=== PATIENT | female | born 1970 | race Caucasian/White ===

== ENCOUNTER → 2017-03-15 | Outpatient (CLI) | payer OTHER ==
[~2017-03-15] MED LIST: CALCIUM + D PO; CALCIUM + D1 TA1 PO; CARAFATE1 GM/10 ML PO; DEPO-PROVERA IM; DEXILANT60 M1 PO; FULL CIRCLE BIOT5 MG PO; IRON PO; METOPROLOL SUCC25 M1 PO; MULTI-VIT PO; MULTIVITAMIN1 TA1 PO; MYL80 PO; MYLANTA355 ML PO; PAN PO; POLY VITAMIN W/50 M2 PO; PROZ20 PO; REG10 PO; SER25 PO; XAN1 PO; ZINC PO; [UNRECOGNIZED DRUG - OTHER] PO; [UNRECOGNIZED DRUG - OTHER] PO; [UNRECOGNIZED DRUG - OTHER] PO
[2017-03-15 10:32] LABS: BASOPHIL % 0.4 % (0-2); RED BLOOD CELLS 4.36 M/mm3 (4.10-5.10)
[2017-03-15 10:33] LABS: RED CELL DISTRIBUTION WIDTH 15.4 % (11.5-14.5)
[2017-03-15 10:34] LABS: PLATELET COUNT 417 x10^3mcL (130-400)
[2017-03-15 10:49] LABS: ALBUMIN 4.1 g/dL (3.4-5.0); ALKALINE PHOSPHATASE 118 U/L (46-116); ALT/SGPT 20 U/L (14-59); AST/SGOT 22 U/L (15-37); BILIRUBIN TOTAL 0.7 mg/dL (0.20-1.00); CALCIUM 8.8 mg/dL (8.5-10.1); CARBON DIOXIDE 24.8 mmol/L (21-32); CHLORIDE SERUM 104 mmol/L (98-107); CREATININE SERUM 0.7 mg/dL (0.6-1.0); GFR1 > 60 mL/min; GLUCOSE SERUM 97 mg/dL (74-106); HDL CHOLESTEROL 60 mg/dL (40-60); PHOSPHOROUS 3.6 mg/dL (2.5-4.9); POTASSIUM SERUM 3.2 mmol/L (3.5-5.1); SODIUM SERUM 140 mmol/L (136-145); TRIGLYCERIDES 120 mg/dL (<150); URIC ACID 5.7 mg/dL (2.6-6.0)
[2017-03-15 10:51] LABS: CHOLESTEROL 208 mg/dL (<200); CHOLESTEROL/HDL RATIO 3.5; TOTAL PROTEIN, SERUM 8.3 g/dL (6.4-8.2)
[2017-03-15 10:58] LABS: IRON 82 ug/dL (50-170)
[2017-03-15 11:03] LABS: FREE T4 1.2 ng/dL (0.76-1.46); FREE THYROXINE INDEX 3.6 ug/dL (1.4-4.5); T4(THYROXINE) 11.3 ug/dL (4.7-13.3)
[2017-03-15 11:07] LABS: TOTAL IRON BINDING CAPACITY 579 ug/dL (250-450)
[2017-03-15 11:32] LABS: T3 TOTAL 1.85 ng/mL
[2017-03-15 11:35] LABS: ERYTHROCYTE SED RATE 47 mm/hr (0-20)
== END | disposition home or self-care (01) ==
LOC: LB 09:19
PROVIDERS: Family Medicine
DX: K28.7 Chronic gastrojejunal ulcer without hemorrhage or perforation (principal); R10.9 Unspecified abdominal pain; M54.41 Lumbago with sciatica, right side; K90.89 Other intestinal malabsorption
CPT/HCPCS: 82672; 84207; 84402; 84403; 84425; 84439; 84630; 86431

== ENCOUNTER → 2017-04-24 | Outpatient (CLI) | payer OTHER | END | disposition home or self-care (01) | LOC: CT 08:30 | PROC: BW211ZZ Computerized Tomography (CT Scan) of Abdomen and Pelvis using Low Osmolar Contrast (ICD-10-PCS; principal; 2017-04-24) | DX: Z13.89 Encounter for screening for other disorder (principal) | CPT/HCPCS: A9698; Q9967 ==

== ENCOUNTER 2017-05-10 06:04 | Day surgery (SDC) | payer OTHER ==
[~2017-05-10] VITALS: Ht 172.7 cm; Wt 104.3 kg
[2017-05-10 06:40] VITALS: BP 134/84
[2017-05-10 09:02] VITALS: BP 108/70
== END 2017-05-10 08:55 | disposition home or self-care (01) ==
LOC: GI 06:04 → OR 12:30 → GI 12:30
PROVIDERS: Internal Medicine
PROC: 0DB68ZX Excision of Stomach, Via Natural or Artificial Opening Endoscopic, Diagnostic (ICD-10-PCS; principal; 2017-05-10 12:30)
DX: R10.9 Unspecified abdominal pain (principal); Z98.84 Bariatric surgery status; Z98.0 Intestinal bypass and anastomosis status
CPT/HCPCS: 43235; J1200; J1610; J2250; J2310; J3010; J3490

== ENCOUNTER 2017-05-31 06:21 | Day surgery (SDC) | payer OTHER ==
[~2017-05-31] VITALS: Ht 172.7 cm; Wt 104.3 kg
[2017-05-31 06:42] VITALS: BP 161/98
[2017-05-31 09:27] VITALS: BP 145/86
== END 2017-05-31 09:45 | disposition home or self-care (01) ==
LOC: GI 06:21 → OR 10:30 → GI 10:30
PROVIDERS: Internal Medicine
PROC: 0DJD8ZZ Inspection of Lower Intestinal Tract, Via Natural or Artificial Opening Endoscopic (ICD-10-PCS; principal; 2017-05-31 10:30)
DX: Z12.11 Encounter for screening for malignant neoplasm of colon (principal); K66.0 Peritoneal adhesions (postprocedural) (postinfection); E66.9 Obesity, unspecified; Z68.39 Body mass index [BMI] 39.0-39.9, adult
CPT/HCPCS: 45378; J1200; J1610; J2175; J2250; J2310; J3010; J3490

== ENCOUNTER → 2017-10-04 | Outpatient (CLI) | payer OTHER | END | disposition home or self-care (01) | LOC: RD 10:25 | DX: M54.5 Low back pain (principal) ==

== ENCOUNTER → 2018-01-30 | Outpatient (CLI) | payer OTHER ==
[2018-01-30 11:38] LABS: ALBUMIN 3.8 g/dL (3.4-5.0); ALKALINE PHOSPHATASE 128 U/L (46-116); ALT/SGPT 19 U/L (14-59); AST/SGOT 29 U/L (15-37); BILIRUBIN TOTAL 0.56 mg/dL (0.20-1.00); CALCIUM 8.9 mg/dL (8.5-10.1); CARBON DIOXIDE 26.3 mmol/L (21-32); CHLORIDE SERUM 108 mmol/L (98-107); CHOLESTEROL 191 mg/dL (<200); CREATININE SERUM 0.7 mg/dL (0.6-1.0); GFR1 > 60 mL/min; GLUCOSE SERUM 93 mg/dL (74-106); MAGNESIUM 2.1 mg/dL (1.8-2.4); POTASSIUM SERUM 3.5 mmol/L (3.5-5.1); SODIUM SERUM 144 mmol/L (136-145); TOTAL PROTEIN, SERUM 7.6 g/dL (6.4-8.2); TRIGLYCERIDES 114 mg/dL (<150)
[2018-01-30 11:39] LABS: HDL CHOLESTEROL 64 mg/dL (40-60)
[2018-01-30 11:54] LABS: IRON 33 ug/dL (50-170); TOTAL IRON BINDING CAPACITY 511 ug/dL (250-450)
[2018-01-30 11:55] LABS: FREE T4 0.88 ng/dL (0.76-1.46); FREE THYROXINE INDEX 2.3 ug/dL (1.4-4.5); T4(THYROXINE) 7.2 ug/dL (4.7-13.3)
[2018-01-30 12:11] LABS: BASOPHIL % 0.4 % (0-2); PLATELET COUNT 392 x10^3mcL (130-400); RED BLOOD CELLS 4.38 M/mm3 (4.10-5.10)
[2018-01-30 12:13] LABS: RED CELL DISTRIBUTION WIDTH 16.1 % (11.5-14.5)
[2018-01-30 13:27] LABS: T3 TOTAL 1.09 ng/mL
== END | disposition home or self-care (01) ==
LOC: MI 12-20 13:00 → US 10:06
PROVIDERS: Family Medicine
PROC: BW40ZZZ Ultrasonography of Abdomen (ICD-10-PCS; principal; 2018-01-30)
DX: K28.7 Chronic gastrojejunal ulcer without hemorrhage or perforation (principal); R16.1 Splenomegaly, not elsewhere classified
CPT/HCPCS: 84207; 84425; 84439; 84630

== ENCOUNTER → 2018-02-20 | Outpatient (CLI) | payer OTHER | END | disposition home or self-care (01) | LOC: MI 02-09 16:00 | PROC: BR39ZZZ Magnetic Resonance Imaging (MRI) of Lumbar Spine (ICD-10-PCS; principal; 2018-02-20) | DX: M62.830 Muscle spasm of back (principal) ==